=== PATIENT | male | born 1985 | race Caucasian/White ===

== ENCOUNTER 2024-03-29 09:07 | Outpatient (CLI) | payer OTHER ==
--- NOTE | 2024-03-29 11:34 | MRI Report ---
Shoulder RT WO CLINICAL HISTORY: 38 years of age, Male, R SHOULDER PAIN. Comparison: No priors available Technique: Multiplanar, multisequence MRI of the right shoulder was performed without intravenous co ntrast. IV Contrast: Not Administered. Findings: Osseous acromial outlet: Moderate degenerative changes of the acromioclavicular joint with capsular h ypertrophy and subchondral cystic changes. Type I acromion. No os acromiale. Trace subacromial/subdel toid bursitis. Rotator cuff muscles and tendons: Moderate tendinosis of the supraspinatus and infraspinatus, without tear. The teres minor is unremarkable. The subscapularis is intact. Muscles are intact without evidence of atrophy or edema. Labral and capsular structures: Tear of the superior labrum. Vika complex is noted. Biceps tendon and anchor: The extra-articular biceps tendon is extremely diminutive, but is grossly i ntact. The intra-articular biceps tendon is not visualized. Osseous and cartilaginous structures: Moderate subchondral cystic changes at the posterior aspect of the greater tuberosity, reactive. No acute fracture. Mild subchondral cystic changes at the lesser tu berosity, reactive as well. No focal chondral defect. Miscellaneous: No significant glenohumeral effusion. Mild subcoracoid bursitis. No intra-articular bodies. The remaining muscles are normal in bulk without evidence of atrophy or edema. 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 2.Moderate tendinosis supraspinatus and infraspinatus, without tear. 3.Superior labral tear with Jenera complex. 4.Extremely diminutive extra-articular biceps tendon. Nonvisualization of the intra-articular biceps tendon. Underlying tear cannot be excluded. Reviewed by: Stephanie Serrato MD on 03/29/2024 11:32 AM PDT Approved by: Stephanie Serrato MD on 03/29/2024 11:32 AM PDT Station ID: [id number]
== END 2024-03-29 09:08 | disposition home or self-care (01) ==
LOC: DI 09:07
PROVIDERS: ATTEND Student in an Organized Health Care Education/Training Program
DX: M19.011 Primary osteoarthritis, right shoulder (principal); M75.91 Shoulder lesion, unspecified, right shoulder; M75.51 Bursitis of right shoulder; S43.431A Superior glenoid labrum lesion of right shoulder, initial encounter